=== PATIENT | female | born 1985 ===

== ENCOUNTER 2022-04-14 12:30 | Inpatient (IN) | payer OTHER ==
[2022-04-14] MEDS ORDERED: ELECTROLYTE-148 SOLN 500 ML IV ONE ×2 (13:00→18:51)
[2022-04-14] MEDS ORDERED: AMPICILLIN - 2 GM in SODIUM CHLORIDE 100 ML IVPB ONE (13:00)
[2022-04-14] MEDS ORDERED: CITRIC ACID/SODIUM CITRATE 30 ML UNIT-DOSE CUP PO ONE ×2 (13:00→18:51)
[2022-04-14] MEDS ORDERED: ELECTROLYTE-148 SOLN 1,000 ML IV SCH ×2 (13:30→19:00)
[2022-04-14] MEDS ORDERED: AMPICILLIN SODIUM 2 GM VIAL ONE (13:58)
[2022-04-14 14:37] VITALS: BMI 31.4
[2022-04-14 16:04] LABS: BASO % 0.2 % (0-2.0); EOS % 0.8 % (0-4.5); HEMATOCRIT 35.6 % (32.4-45.2); HEMOGLOBIN 11.8 GM/dL (10.7-15.3); LYMPH % 19.3 % (8-40); MCH 30.6 pg (25.7-33.7); MCHC 33.2 g/dl (32.0-36.0); MEAN CELL VOLUME 92.3 fl (80-96); MEAN PLT VOLUME 8.4 fl (7.5-11.1); MONO % 7.4 % (3.8-10.2); NEUT % 72.3 % (42.8-82.8); PLATELET COUNT 252 10^3/uL (134-434); RBC 3.86 M/mm3 (3.60-5.2); RDW 15.7 % (11.6-15.6); WHITE BLOOD COUNT 7.4 K/mm3 (4.0-10.0)
[2022-04-14 16:15] LABS: CALCIUM 8.6 mg/dL (8.5-10.1)
[2022-04-14 16:17] LABS: INR 0.98 (0.83-1.09); PROTHROMBIN TIME (PATIENT) 11.3 SEC (9.7-13.0)
[2022-04-14 16:19] LABS: CREATININE 0.5 mg/dL (0.55-1.3)
[2022-04-14 16:20] LABS: ACTIVATED PTT 27.9 SECONDS (25.2-36.5)
[2022-04-14] MEDS: AMPICILLIN - 1 GM in SODIUM CHLORIDE 100 ML IVPB SCH ×2 (17:40→21:26)
[2022-04-14] MEDS ORDERED: AMPICILLIN SODIUM 1 GM VIAL ONE (17:40)
[2022-04-14] MEDS ORDERED: morphine SULFATE/PF 1 MG/2 ML (2cc Syringe - QUVA) ONE (19:36)
[2022-04-14] MEDS ORDERED: ONDANSETRON 4 MG/2 ML VIAL ONE (19:54)
[2022-04-14] MEDS ORDERED: ceFAZolin SODIUM 1 GM VIAL ONE (19:54)
[2022-04-14] MEDS ORDERED: OXYTOCIN 10 UNITS/ML VIAL ONE (19:54)
[2022-04-14] MEDS ORDERED: KETOROLAC TROMETHAMINE 30 MG/1 ML VIAL ONE (19:54)
[2022-04-14] MEDS ORDERED: METHYLERGONOVINE MALEATE 0.2 MG/1 ML AMP IM PRN (20:58)
[2022-04-14] MEDS ORDERED: ACETAMINOPHEN 325 MG TABLET (FP) PO PRN (20:58)
[2022-04-14] MEDS ORDERED: SENNOSIDES/DOCUSATE COMBO (SENNA PLUS) TABLET (UD) PO PRN (20:58)
[2022-04-14] MEDS: OXYTOCIN 20 UNITS in 0.9% NS 20 UNIT/1,000 ML INFUS.BAG IV SCH (21:00)
[2022-04-14] MEDS ORDERED: OXYTOCIN 20 UNITS in 0.9% NS 20 UNIT/1,000 ML INFUS.BAG IV ONE (21:11)
[2022-04-14] MEDS ORDERED: morphine SULFATE/PF 1 MG/2 ML (2cc Syringe - QUVA) IT ONE (21:12)
[2022-04-14] MEDS ORDERED: ONDANSETRON 4 MG/2 ML VIAL IVPUSH PRN (21:12)
[2022-04-14] MEDS ORDERED: ACETAMINOPHEN 1000 MG/100 ML BAG IVPB ONE (21:13)
[2022-04-14 22:31] LABS: HIV INTERPRETATION NEGATIVE (NEGATIVE)
[2022-04-15] MEDS: IBUPROFEN 800 MG/8 ML IJ IVPB PRN ×2 (02:03→09:05)
[2022-04-15] MEDS: OXYTOCIN 20 UNITS in 0.9% NS 20 UNIT/1,000 ML INFUS.BAG IV SCH (05:30)
[2022-04-15 07:53] LABS: BASO % 0.3 % (0-2.0); EOS % 0.9 % (0-4.5); HEMATOCRIT 30.8 % (32.4-45.2); HEMOGLOBIN 10.6 GM/dL (10.7-15.3); LYMPH % 16.3 % (8-40); MCH 31.8 pg (25.7-33.7); MCHC 34.6 g/dl (32.0-36.0); MEAN CELL VOLUME 92.1 fl (80-96); MEAN PLT VOLUME 7.5 fl (7.5-11.1); MONO % 6.8 % (3.8-10.2); NEUT % 75.7 % (42.8-82.8); PLATELET COUNT 205 10^3/uL (134-434); RBC 3.34 M/mm3 (3.60-5.2); WHITE BLOOD COUNT 7.3 K/mm3 (4.0-10.0)
[2022-04-15] MEDS ORDERED: oxyCODONE HCL 5 MG TABLET PO PRN ×2 (08:58)
[2022-04-15] MEDS ORDERED: FLU VACC QS2022-23(6MOS UP)/PF 60 MCG/0.5 ML SYRINGE IM ONE (10:00)
[2022-04-15] MEDS ORDERED: DIPHTH,PERTUSS(ACELL),TET 0.5 ML DISP.SYRIN IM ONE (10:00)
[2022-04-15] MEDS: PRENATAL VITAMINS W/ FOLIC ACID TABLET (FP) PO SCH (10:11)
[2022-04-15 11:14] LABS: POC NITRAZINE POS
[2022-04-15] MEDS: SIMETHICONE 80 MG TAB.CHEW (FP) PO PRN ×2 (17:55→22:24)
[2022-04-15] MEDS ORDERED: BISACODYL 10 MG SUPP.RECT RC PRN (20:58)
[2022-04-15] MEDS: IBUPROFEN 600 MG TABLET (FP) PO PRN (22:23)
[2022-04-16] MEDS: IBUPROFEN 600 MG TABLET (FP) PO PRN ×3 (05:38→17:46)
[2022-04-16] MEDS: SIMETHICONE 80 MG TAB.CHEW (FP) PO PRN ×2 (05:39→10:16)
[2022-04-16] MEDS: PRENATAL VITAMINS W/ FOLIC ACID TABLET (FP) PO SCH (11:39)
[2022-04-16 21:56] VITALS: RESP 18
[2022-04-17] MEDS: IBUPROFEN 600 MG TABLET (FP) PO PRN ×3 (00:14→13:20)
[2022-04-17] MEDS: SIMETHICONE 80 MG TAB.CHEW (FP) PO PRN (00:14)
[2022-04-17] MEDS: PRENATAL VITAMINS W/ FOLIC ACID TABLET (FP) PO SCH (09:29)
[2022-04-17 11:41] VITALS: PULSE 98; TEMP 98
[2022-04-17 13:22] VITALS: BP 121/73
== END 2022-04-17 14:10 | disposition home or self-care (01) | DRG 540 ==
LOC: JLDR 12:30 → J3W 22:30
PROVIDERS: ADMIT Obstetrics & Gynecology; ATTEND Obstetrics & Gynecology
PROC: 10D00Z1 Extraction of Products of Conception, Low, Open Approach (ICD-10-PCS; principal; 2022-04-14)
DX: O82 Encounter for cesarean delivery without indication (principal); Z3A.37 37 weeks gestation of pregnancy; Z37.0 Single live birth
CPT/HCPCS: 36415; 80048; 83986-QW; 85025; 85610; 85730; 86762; 86780; 86850; 86900; 86901; 87340; 87389; 88307-TC; 90715; C9803-CS; G0008; Q2036; U0003; U0005

== ENCOUNTER 2024-05-04 06:35 | Inpatient (IN) | payer OTHER ==
[2024-05-04] MEDS: ELECTROLYTE-148 SOLN 1,000 ML IV SCH (07:00)
[2024-05-04] MEDS ORDERED: morphine SULFATE/PF 1 MG/2 ML (2cc Syringe - QUVA) ONE (07:37)
[2024-05-04] MEDS ORDERED: FENTANYL CITRATE/PF 50 MCG/ML VIAL ONE (07:37)
[2024-05-04] MEDS ORDERED: IBUPROFEN 600 MG TABLET (FP) PO PRN (08:21)
[2024-05-04] MEDS ORDERED: METHYLERGONOVINE MALEATE 0.2 MG/1 ML AMP IM PRN (08:21)
[2024-05-04] MEDS ORDERED: IBUPROFEN 800 MG/8 ML IJ IVPB PRN (08:21)
[2024-05-04] MEDS: CITRIC ACID/SODIUM CITRATE 30 ML UNIT-DOSE CUP PO ONE (08:30)
[2024-05-04] MEDS ORDERED: ONDANSETRON 4 MG/2 ML VIAL ONE ×2 (08:52→09:45)
[2024-05-04] MEDS ORDERED: PHENYLEPHRINE HCL 10 MG/1 ML SINGLE DOSE VIAL ONE ×2 (08:53→09:45)
[2024-05-04] MEDS ORDERED: DEXAMETHASONE SOD PHOSPHATE 4 MG/1 ML VIAL ONE (09:45)
[2024-05-04] MEDS: OXYTOCIN 20 UNITS in 0.9% NS 20 UNIT/1,000 ML INFUS.BAG IV SCH (10:00)
[2024-05-04] MEDS ORDERED: OXYTOCIN 10 UNITS/ML VIAL ONE (10:40)
[2024-05-04 12:29] VITALS: BMI 33.8
[2024-05-04] MEDS: ACETAMINOPHEN 1000 MG/100 ML BAG IVPB PRN (13:23)
[2024-05-05] MEDS: oxyCODONE HCL 5 MG TABLET PO PRN ×2 (02:05→10:48)
[2024-05-05] MEDS: SIMETHICONE 80 MG TAB.CHEW (FP) PO PRN (05:53)
[2024-05-05 07:59] LABS: BASO % 0.3 % (0-2.0); EOS % 1.2 % (0-4.5); HEMATOCRIT 30.9 % (32.4-45.2); HEMOGLOBIN 10.2 GM/dL (10.7-15.3); LYMPH % 18.6 % (8-40); MCH 30.4 pg (25.7-33.7); MCHC 33.2 g/dl (32.0-36.0); MEAN CELL VOLUME 91.6 fl (80-96); MEAN PLT VOLUME 7.8 fl (7.5-11.1); MONO % 8.3 % (3.8-10.2); NEUT % 71.6 % (42.8-82.8); PLATELET COUNT 205 10^3/uL (134-434); RBC 3.37 M/mm3 (3.60-5.2); RDW 16.7 % (11.6-15.6); WHITE BLOOD COUNT 8.3 K/mm3 (4.0-10.0)
[2024-05-05] MEDS: ACETAMINOPHEN 325 MG TABLET (FP) PO PRN (08:28)
[2024-05-05] MEDS ORDERED: DIPHTH,PERTUSS(ACELL),TET 0.5 ML DISP.SYRIN IM ONE (10:00)
[2024-05-05] MEDS: FERROUS SO4 325 MG TABLET (FP) PO SCH (10:00)
[2024-05-05] MEDS ORDERED: FLU VACCINE (FLULAVAL) PF 45 MCG/0.5 ML SYRINGE 2024-2025 IM ONE (10:00)
[2024-05-05] MEDS: PRENATAL VITAMINS W/ FOLIC ACID TABLET (FP) PO SCH (10:48)
[2024-05-05] MEDS: BISACODYL 10 MG SUPP.RECT RC PRN (16:00)
[2024-05-05] MEDS: SENNOSIDES/DOCUSATE COMBO (SENNA PLUS) TABLET (UD) PO PRN (19:07)
[2024-05-06] MEDS: FLU VACCINE (FLULAVAL) PF 45 MCG/0.5 ML SYRINGE 2024-2025 IM ONE (13:36)
[2024-05-06] MEDS: DIPHTH,PERTUSS(ACELL),TET 0.5 ML DISP.SYRIN IM ONE (13:39)
[2024-05-06] MEDS: POLYETHYLENE GLYCOL (HEALTHYLAX) 3350 17 GM PACKET PO SCH (21:42)
[2024-05-07 08:30] VITALS: RESP 16
[2024-05-07 08:33] VITALS: BP 104/69; PULSE 91; TEMP 98.5
== END 2024-05-07 12:52 | disposition home or self-care (01) | DRG 540 ==
LOC: JLDR 06:35 → J3W 12:25
PROVIDERS: ADMIT Obstetrics & Gynecology; ATTEND Obstetrics & Gynecology
PROC: 10D00Z1 Extraction of Products of Conception, Low, Open Approach (ICD-10-PCS; principal; 2024-05-04)
PROC: 0UL70ZZ Occlusion of Bilateral Fallopian Tubes, Open Approach (ICD-10-PCS; 2024-05-04)
DX: O34.219 Maternal care for unspecified type scar from previous cesarean delivery (principal); O24.429 Gestational diabetes mellitus in childbirth, unspecified control; Z3A.37 37 weeks gestation of pregnancy; Z37.0 Single live birth; Z30.2 Encounter for sterilization
CPT/HCPCS: 36415; 59409; 80053; 82962; 85025; 85610; 85730; 86780; 86803; 86850; 86900; 86901; 87389; 88302-TC; 88307-TC; 90656; 90715; 94010; G0008; J0131